=== PATIENT | male | born 1940 | race Caucasian/White ===

== ENCOUNTER 2023-12-30 10:57 | Emergency (ER) | payer BC ==
[~2023-12-30] VITALS: Ht 160 cm; Wt 77.1 kg
[2023-12-30 11:13] VITALS: BP_SYST 134; PULSE 73; RESP 16; TEMP 98.1; O2SAT 100
[2023-12-30] MEDS: ASPIRIN 325 MG TABLET PO ONE (11:22)
[2023-12-30 11:35] LABS: BASOPHILS # (AUTO) 0.1 K/uL (0.0-0.2); BASOPHILS % (AUTO) 1.1 % (0.0-2.0); EOSINOPHILS # (AUTO) 0.1 K/uL (0.0-0.4); EOSINOPHILS % (AUTO) 1.2 % (0.0-4.0); HEMATOCRIT 37.4 % (36-54); HEMOGLOBIN 12.5 g/dL (14.0-18.0); LYMPHOCYTES # (AUTO) 1.2 K/uL (1.0-5.5); LYMPHOCYTES % (AUTO) 21.3 % (20.5-51.5); MEAN CORPUSCULAR HEMOGLOBIN 31 pg (27-31); MEAN CORPUSCULAR HGB CONC 33 % (32-36); MEAN CORPUSCULAR VOLUME 92 fL (79.0-98.0); MONOCYTES # (AUTO) 0.6 K/uL (0.0-1.0); MONOCYTES % (AUTO) 10.2 % (1.7-9.3); NEUTROPHILS # (AUTO) 3.8 K/uL (1.8-7.7); NEUTROPHILS % (AUTO) 66.2 % (40.0-70.0); PLATELET COUNT (AUTO) 204 K/uL (130-430); RED BLOOD CELL COUNT(AUTO) 4.06 MIL/uL (4.2-6.2); RED CELL DISTRIBUTION WIDTH 13.8 % (9.0-15.0); WHITE BLOOD COUNT (AUTO) 5.8 K/uL (4.8-10.8)
[2023-12-30 11:45] LABS: ANION GAP 5 (5-15); CALCIUM 9.1 mg/dL (8.4-11.0); CARBON DIOXIDE 26 mmol/L (23-29); CHLORIDE 103 mmol/L (98-107); CREATININE 1.49 mg/dL (0.55-1.30); GLUCOSE 136 mg/dL (74-106); POTASSIUM 4.1 mmol/L (3.5-5.1); SODIUM SERUM 134 mmol/L (136-145); UREA NITROGEN, BLOOD 22 mg/dL (8-21)
[2023-12-30] MEDS ORDERED: CIPR500T5 PO (12:49)
[2023-12-30] MEDS ORDERED: METR-154 PO (12:49)
[2023-12-30 13:07] VITALS: BP_SYST 134; PULSE 67; RESP 13; TEMP 98.1; O2SAT 96
== END 2023-12-30 13:02 | disposition home or self-care (01) ==
LOC: SED 10:57
DX: R07.9 Chest pain, unspecified (principal); Z79.899 Other long term (current) drug therapy
CPT/HCPCS: 36415; 80048; 84484; 85025; 93005; 99284